=== PATIENT | male | born 1985 | race African-American/Black ===

== ENCOUNTER 2024-08-17 10:28 | Observation (INO) | payer OTHER ==
[2024-08-17] MEDS ORDERED: ACETAMINOPHEN INJECTION 100 ML ONE (12:21)
[2024-08-17] MEDS ORDERED: ONDANSETRON 4 MG/2 ML VIAL ONE (12:25)
[2024-08-17] MEDS: ACETAMINOPHEN 1000 MG/100 ML BAG IVPB ONE (13:02)
[2024-08-17] MEDS: ONDANSETRON 4 MG/2 ML VIAL IVPUSH ONE (13:03)
[2024-08-17 13:14] LABS: ABSOLUTE IMMATURE GRANULOCYTES 0.01 x10^3/uL (0.0-0.031); BASOPHILS # 0.06 x10^3/uL (0.01-0.08); EOSINOPHIL % 3.5 % (0.8-7.0); EOSINOPHILS # 0.24 x10^3/uL (0.04-0.54); HEMATOCRIT 47.9 % (40.1-51.0); HEMOGLOBIN 15.7 g/dL (13.7-17.5); MCHC 32.8 g/dl (32.3-36.5); MEAN CELL VOLUME 91.1 fl (79.0-92.2); MEAN PLT VOLUME 9.5 fl (9.4-12.4); MONOCYTE # 0.62 x10^3/uL (0.30-0.82); MONOCYTE % 9.1 % (5.3-12.2); PLATELET COUNT 303 x10^3/uL (163-337); RDW 13.4 % (12.0-15.6)
[2024-08-17] MEDS ORDERED: AZITHROMYCIN IVPB 500 MG/250 ML BAG IVPB ONE (13:43)
[2024-08-17] MEDS ORDERED: CEFTRIAXONE 1 G/50 ML PREMIX 50 ML IVPB ONE (13:43)
[2024-08-17 13:48] LABS: POTASSIUM 3.9 mmol/L (3.5-5.1)
[2024-08-17 13:51] LABS: ALBUMIN 3.6 g/dl (3.4-5.0); CALCIUM 9.3 mg/dL (8.5-10.1)
[2024-08-17 13:52] LABS: BLOOD UREA NITROGEN 9.3 mg/dL (7-18)
[2024-08-17 13:54] LABS: CREATININE 0.7 mg/dL (0.55-1.3)
[2024-08-17 13:55] LABS: BILIRUBIN,TOTAL 0.3 mg/dL (0.2-1); TOT PROT 8.3 g/dl (6.4-8.2)
[2024-08-17] MEDS: CEFTRIAXONE 1,000 MG in DEXTROSE 5%-WATER - 50 ML IVPB ONE (14:09)
[2024-08-17] MEDS: AZITHROMYCIN IVPB 500 MG in DEXTROSE 5%-WATER - 250 ML IVPB ONE (14:59)
[2024-08-17] MEDS ORDERED: BACLOFEN 10 MG TABLET (FP) ONE ×3 (17:16→21:41)
[2024-08-17] MEDS: BACLOFEN 10 MG TABLET (FP) PO ONE (17:25)
[2024-08-17] MEDS: levoFLOXacin 750 MG TABLET PO ONE (17:25)
[2024-08-17] MEDS ORDERED: DOCUSATE SODIUM 100 MG CAPSULE (FP) PO ONE (20:34)
[2024-08-17] MEDS ORDERED: levETIRAcetam 500 MG TABLET (FP) PO ONE (20:34)
[2024-08-17] MEDS ORDERED: LACTULOSE 20 GM/30 ML UDC (FOR ORAL USE ONLY) ONE (20:34)
[2024-08-17] MEDS: BACLOFEN 10 MG TABLET (FP) PO SCH (21:55)
[2024-08-17] MEDS: DOCUSATE SODIUM 100 MG CAPSULE (FP) PO SCH (21:56)
[2024-08-17] MEDS: LACTULOSE 20 GM/30 ML UDC (FOR ORAL USE ONLY) PO SCH (21:56)
[2024-08-17] MEDS ORDERED: levETIRAcetam 500 MG/5 ML INJECTION VIAL IVPB ONE (21:57)
[2024-08-17] MEDS ORDERED: levETIRAcetam XR 500 MG TAB PO SCH (22:00)
[2024-08-17] MEDS ORDERED: DEXTROSE 5%-WATER 100 ML IVPB ONE (22:01)
[2024-08-17] MEDS: levETIRAcetam 500 MG/5 ML INJECTION VIAL IVPB SCH (22:07)
[2024-08-18] MEDS: NYSTATIN 500,000 UNITS/5 ML SUSPENSION PO SCH (00:35)
[2024-08-18] MEDS ORDERED: DOCUSATE SODIUM 100 MG CAPSULE (FP) PO SCH (06:00)
[2024-08-18 07:48] LABS: HEMATOCRIT 44.3 % (40.1-51.0); HEMOGLOBIN 14.4 g/dL (13.7-17.5); MCHC 32.5 g/dl (32.3-36.5); MEAN CELL VOLUME 92.1 fl (79.0-92.2); MEAN PLT VOLUME 9.6 fl (9.4-12.4); PLATELET COUNT 301 x10^3/uL (163-337); RDW 13.4 % (12.0-15.6)
[2024-08-18 08:14] LABS: POTASSIUM 4.3 mmol/L (3.5-5.1)
[2024-08-18 08:23] LABS: BLOOD UREA NITROGEN 11.4 mg/dL (7-18); CALCIUM 9.4 mg/dL (8.5-10.1)
[2024-08-18 08:27] LABS: CREATININE 0.8 mg/dL (0.55-1.3)
[2024-08-18] MEDS: levoFLOXacin 750 MG TABLET PO SCH (09:12)
[2024-08-18] MEDS: levETIRAcetam 500 MG/5 ML INJECTION VIAL IVPB SCH (09:12)
[2024-08-18] MEDS: NYSTATIN POWDER 100,000 UNITS/GM - 30 GM TOPICAL POWDER TP SCH (09:13)
[2024-08-18] MEDS ORDERED: levETIRAcetam 250 MG TABLET PO SCH (10:00)
[2024-08-18] MEDS: ZINC OXIDE/PETROLATUM,WHITE 1 APPLIC OINT...G. TP SCH (10:30)
[2024-08-18] MEDS: HEPARIN NA (PORCINE) 5,000 UNITS/ML 1ML VIAL SQ SCH (11:40)
[2024-08-18] MEDS ORDERED: SENNOSIDES 8.6MG TABLET (FP) PO PRN (18:03)
[2024-08-18] MEDS: BISACODYL 10 MG SUPP.RECT PR ONE (18:14)
[2024-08-18] MEDS: levETIRAcetam 500 MG/5 ML INJECTION VIAL IVPB ONE (21:50)
[2024-08-18] MEDS ORDERED: CEFUROXIME AXETIL 500 MG TABLET PO SCH (22:00)
[2024-08-19 07:08] VITALS: RESP 18
[2024-08-19] MEDS ORDERED: levETIRAcetam 500 MG TABLET (FP) PO SCH ×2 (10:00→22:00)
[2024-08-19] MEDS: levETIRAcetam 250 MG TABLET PO SCH (10:03)
[2024-08-19 14:57] VITALS: BMI 23.6
[2024-08-19 15:28] VITALS: BP 148/94; PULSE 98; TEMP 98
[2024-08-19] MEDS ORDERED: SENNOSIDES 8.6MG TABLET (FP) PO SCH (22:00)
== END 2024-08-19 17:22 | disposition home or self-care (01) ==
LOC: JER 10:28 → JERBED 13:33 → J7W 23:30
PROVIDERS: ADMIT Internal Medicine; ATTEND Nurse Practitioner Family
PROC: 3E03329 Introduction of Other Anti-infective into Peripheral Vein, Percutaneous Approach (ICD-10-PCS; principal; 2024-08-17)
PROC: 3E033NZ Introduction of Analgesics, Hypnotics, Sedatives into Peripheral Vein, Percutaneous Approach (ICD-10-PCS; 2024-08-17)
PROC: 3E023GC Introduction of Other Therapeutic Substance into Muscle, Percutaneous Approach (ICD-10-PCS; 2024-08-17)
PROC: 3E033GC Introduction of Other Therapeutic Substance into Peripheral Vein, Percutaneous Approach (ICD-10-PCS; 2024-08-17)
DX: J18.9 Pneumonia, unspecified organism (principal); G80.9 Cerebral palsy, unspecified; B37.0 Candidal stomatitis; J06.9 Acute upper respiratory infection, unspecified; F79 Unspecified intellectual disabilities; G40.909 Epilepsy, unspecified, not intractable, without status epilepticus; R14.0 Abdominal distension (gaseous); R94.31 Abnormal electrocardiogram [ECG] [EKG]; Z29.9 Encounter for prophylactic measures, unspecified
CPT/HCPCS: 0241U-QW; 36415; 71045-TC-FY; 74019-TC-FY; 80048; 80053; 85025; 85027; 93005; 93010; 93306-TC; 96365; 96367; 96372; 96375; 96376; 99285-25; G0378; J0131; J0475; J1644